=== PATIENT | female | born 1945 ===

== ENCOUNTER 2017-04-26 19:20 | Emergency (ER) | payer MEDICARE, OTHER ==
[2017-04-26 19:34] VITALS: BP 145/86; PULSE 89; RESP 18; TEMP 98.8; O2SAT 100
[2017-04-26 20:10] LABS: BASO # 0.1 K/uL (0.0-0.2); BASO % 1.1 % (0.0-2.0); EOS # 0.1 K/uL (0.0-0.7); HEMATOCRIT 35.7 % (34.0-47.0); LYMPH # 1.8 K/uL (1.0-4.3); MEAN CELL VOLUME 81.1 fl (81.0-99.0); MEAN CORPUSCULAR HEMOGLOBIN 25.7 pg (27.0-31.0); MEAN CORPUSCULAR HGB CONC 31.7 g/dL (33.0-37.0); MEAN PLATELET VOLUME 8.7 fl (7.2-11.7); MONO # 0.5 K/uL (0.0-0.8); NEUT % 60.9 % (50.0-75.0); NRBC % 0.1 % (0.0-0.0); RED CELL DISTRIBUTION WIDTH 15.1 % (11.5-14.5); WHITE BLOOD COUNT 6.5 K/uL (4.8-10.8)
[2017-04-26 20:25] LABS: PARTIAL THROMBOPLASTIN TIME 27.4 Seconds (25.6-37.1)
[2017-04-26 20:28] LABS: ALB/GLOB RATIO 1.4 (1.0-2.1); ALKALINE PHOSPHATASE 89 U/L (38-126); ALT/SGPT 95 U/L (9-52); AST/SGOT 99 U/L (14-36); BILIRUBIN,TOTAL 0.7 mg/dl (0.2-1.3); BLOOD UREA NITROGEN 12 mg/dl (7-17); CALCIUM 9.5 mg/dL (8.4-10.2); CARBON DIOXIDE 25 mmol/L (22-30); CHLORIDE 104 mmol/L (98-107); GFR AFRICAN-AMERICAN > 60; GLUCOSE,RANDOM 175 mg/dL (65-105); SODIUM 139 mmol/l (132-148); TOTAL PROTEIN 7.7 G/DL (6.3-8.2)
[2017-04-26 20:34] LABS: POTASSIUM 4.7 MMOL/L (3.6-5.0)
--- NOTE | 2017-04-26 20:52 | ED PDOC ---
HPI: Chest Pain Time Seen by Provider: 04/26/17 19:36 Chief Complaint (Nursing): Palpitations Chief Complaint (Provider): Palpitations History Per: Patient History/Exam Limitations: no limitations Onset/Duration Of Symptoms: Days (x1) Current Symptoms Are (Timing): Better Additional Complaint(s): Tricia Quinteros is a 71 year old male with previous medical history of diabetes and hypertension, who presents to the emergency department with a complaint of intermittent palpitations ongoing for 1 day. Denied fever, chills, chest pain, shortness of breath, dizziness, nausea and vomiting. Patient stated she had an episode of low blood pressure last week but has since been stable. She also reported symptoms are now mild upon arrival to ED. PMD: Avelino Babcock MD Past Medical History Reviewed: Historical Data, Nursing Documentation, Vital Signs Vital Signs: Last Vital Signs Temp 98.8 F 04/26/17 19:31 Pulse 89 04/26/17 19:31 Resp 18 04/26/17 19:31 BP 145/86 04/26/17 19:31 Pulse Ox 100 04/26/17 20:55 - Medical History PMH: Diabetes, HTN - Surgical History Surgical History: (x2) - Family History Family History: States: Unknown Family Hx - Social History Current smoker - smoking cessation education provided: No Ex-Smoker (has not smoked in the last 12 months): No Alcohol: None Drugs: Denies - Home Medications Home Medications: Ambulatory Orders Medication Instructions Recorded Meclizine [Antivert] 25 mg PO Q6 PRN #10 tab 04/18/15 - Allergies Allergies/Adverse Reactions: Allergies Allergy/AdvReac Type Severity Reaction Status Date / Time No Known Allergies Allergy Unverified 11/06/13 11:55 Review of Systems ROS Statement: Except As Marked, All Systems Reviewed And Found Negative Cardiovascular: Positive for: Palpitations. Negative for: Chest Pain Respiratory: Negative for: Shortness of Breath Gastrointestinal: Negative for: Nausea, Vomiting Neurological: Negative for: Dizziness Physical Exam - Reviewed Nursing Documentation Reviewed: Yes Vital Signs Reviewed: Yes - Physical Exam Appears: Positive for: Well, Non-toxic, No Acute Distress Head Exam: Positive for: ATRAUMATIC, NORMAL INSPECTION, NORMOCEPHALIC Skin: Positive for: Normal Color Eye Exam: Positive for: Normal appearance, EOMI, PERRL. Negative for: Nystagmus Neck: Positive for: Normal, Painless ROM Cardiovascular/Chest: Positive for: Regular Rate, Rhythm. Negative for: Chest Non Tender Respiratory: Positive for: Normal Breath Sounds, Accessory Muscle Use. Negative for: Decreased Breath Sounds, Crackles, Rales, Rhonchi, Wheezing, Respiratory Distress Gastrointestinal/Abdominal: Positive for: Normal Exam, Bowel Sounds, Soft. Negative for: Tenderness Extremity: Positive for: Normal ROM. Negative for: Tenderness, Pedal Edema, Calf Tenderness, Deformity Neurologic/Psych: Positive for: Alert, Oriented - Laboratory Results Result Diagrams: 04/26/17 19:56 04/26/17 19:56 - ECG O2 Sat by Pulse Oximetry: 100 (RA) Pulse Ox Interpretation: Normal Medical Decision Making Medical Decision Making: Initial Impression: Palpitations; diabetes; hypertension Initial Plan: * EKG * TSH * CXR Time: 2039 --Labs: no abnormalities noted. --CXR: no acute disease noted. Time: 2099 --Upon provider reevaluation patient is medically stable and requires no further treatment in the ED at this time. Patient will be discharged home. Counseling was provided and all questions were answered regarding diagnosis and need for follow up with PCP, Dr. Babcock. There is agreement to discharge plan. Return if symptoms persist or worsen. Clinical Impression: Palpitations Scribe Attestation: Documented by Brandi Freeman, acting as a scribe for Christ Randall MD. Provider Scribe Attestation: All medical record entries made by the Scribe were at my direction and personally dictated by me. I have reviewed the chart and agree that the record accurately reflects my personal performance of the history, physical exam, medical decision making, and the department course for this patient. I have also personally directed, reviewed, and agree with the discharge instructions and disposition. Disposition - Clinical Impression Clinical Impression: Palpitations - Patient ED Disposition Is Patient to be Admitted: No Counseled Patient/Family Regarding: Studies Performed, Diagnosis, Need For Followup - Disposition Referrals: Avelino Babcock Jr., MD [Medical Doctor] - Disposition: Routine/Home Disposition Time: 21:20 Condition: STABLE Instructions: Palpitations (ED) Forms: [employer] (Danish) Print Language: FAROESE
--- NOTE | 2017-04-27 10:03 | RAD ---
HISTORY: palpitations COMPARISON: No prior. FINDINGS: LUNGS: No active pulmonary disease. PLEURA: No significant pleural effusion identified, no pneumothorax apparent. CARDIOVASCULAR: Mild cardiomegaly. OSSEOUS STRUCTURES: No significant abnormalities. VISUALIZED UPPER ABDOMEN: Mild degenerative changes both shoulder girdles. OTHER FINDINGS: None. IMPRESSION: No acute consolidation.
--- NOTE | 2017-04-27 12:15 | CARD ---
APPROVED REPORT EKG Measurement Heart [id number] <Conclusion> Normal sinus rhythm T wave abnormality, consider anterolateral ischemia Abnormal ECG
== END 2017-04-26 21:35 | disposition home or self-care (01) ==
LOC: H.ER 19:20
DX: R00.2 Palpitations (principal); E11.9 Type 2 diabetes mellitus without complications; I10 Essential (primary) hypertension; Z87.891 Personal history of nicotine dependence

== ENCOUNTER 2017-09-26 08:01 | Day surgery (SDC) | payer MEDICARE ==
[2017-09-26] MEDS ORDERED: Lactated Ringer's 1,000 ML IV ONE (08:36)
[2017-09-26] MEDS ORDERED: Lidocaine PF 2% (5 ml) Inj (For Cardiac Arrhy) IV ONE (09:05)
[2017-09-26] MEDS ORDERED: Midazolam 2 MG/2 ML VIAL ONE (09:05)
[2017-09-26] MEDS ORDERED: Propofol 10 mg/ml Inj (20 ML) ONE ×2 (09:05→09:44)
[2017-09-26] MEDS ORDERED: ePHEDrine 50 mg/ml Inj ONE (09:34)
[2017-09-26 09:56] VITALS: O2SAT 99
[2017-09-26 10:16] VITALS: BP 113/74; PULSE 99; RESP 17; TEMP 97.1
== END 2017-09-26 10:23 | disposition home or self-care (01) ==
LOC: H.ENDO 08:01
PROVIDERS: ATTEND Internal Medicine Gastroenterology
DX: Z12.11 Encounter for screening for malignant neoplasm of colon (principal); E11.9 Type 2 diabetes mellitus without complications; E78.5 Hyperlipidemia, unspecified; I10 Essential (primary) hypertension; K64.8 Other hemorrhoids; K57.30 Diverticulosis of large intestine without perforation or abscess without bleeding; R10.13 Epigastric pain; K31.9 Disease of stomach and duodenum, unspecified
CPT/HCPCS: 43239; 45378; 82948; 88305; J2250; J2704; J7120